=== PATIENT | female | born 1980 | race Caucasian/White ===

== ENCOUNTER 2017-11-04 21:41 | Emergency (ER) | payer BC ==
[~2017-11-04] VITALS: Ht 160 cm; Wt 73.5 kg
[2017-11-04 21:41] VITALS: BP_SYST 152
[2017-11-04 22:22] LABS: BILIRUBIN,URINE NEGATIVE (NEGATIVE); BLOOD, URINE 3+ (NEGATIVE); CLARITY/URINE HAZY (CLEAR); COLOR,URINE YELLOW (YELLOW); GLUCOSE,URINE NEGATIVE (NEGATIVE); KETONES,URINE NEGATIVE (NEGATIVE); LEUKOCYTE ESTERASE ,URINE 2+ (NEGATIVE); NITRITE, URINE POSITIVE (NEGATIVE); PROTEIN URINE 2+ (NEGATIVE); UROBILINOGEN,URINE 0.2 (0.2-1.0)
[2017-11-04 22:47] VITALS: BP_SYST 145
[2017-11-04 22:52] LABS: BACTERIA,URINE MANY /HPF (None Seen); RBC,URINE 20-50 /HPF (0-3); WBC,URINE >100 /HPF (0-3)
== END 2017-11-04 22:47 | disposition home or self-care (01) ==
LOC: SED 21:41
DX: N39.0 Urinary tract infection, site not specified (principal); R03.0 Elevated blood-pressure reading, without diagnosis of hypertension; Z91.041 Radiographic dye allergy status
CPT/HCPCS: 81000-TC; 81025; 87086; 87186-TC; 99284

== ENCOUNTER 2024-02-20 04:57 | Emergency (ER) | payer BC ==
[~2024-02-20] VITALS: Ht 165.1 cm; Wt 72.6 kg
[2024-02-20 05:55] VITALS: BP_SYST 155; PULSE 88; RESP 16; TEMP 98.1; O2SAT 99
[2024-02-20 07:29] LABS: COVID19 ANTIGEN SOFIA FIA NEGATIVE (NEGATIVE); INFLUENZA TYPE A Negative (NEGATIVE); INFLUENZA TYPE B NEGATIVE (NEGATIVE)
[2024-02-20] MEDS ORDERED: AUG875 PO (07:36)
[2024-02-20] MEDS ORDERED: FLUT16SP16 NS (07:36)
[2024-02-20 08:12] VITALS: BP_SYST 148; PULSE 88; RESP 16; TEMP 98.1; O2SAT 99
== END 2024-02-20 08:11 | disposition home or self-care (01) ==
LOC: SED 04:57
DX: J06.9 Acute upper respiratory infection, unspecified (principal); J32.9 Chronic sinusitis, unspecified; R05.9 Cough, unspecified; R09.81 Nasal congestion; R51.9 Headache, unspecified; Z88.8 Allergy status to other drugs, medicaments and biological substances; Z91.041 Radiographic dye allergy status; Z79.899 Other long term (current) drug therapy; Z20.822 Contact with and (suspected) exposure to COVID-19
CPT/HCPCS: 36415; 99283